=== PATIENT | male | born 1965 | race Caucasian/White ===

== ENCOUNTER 2018-08-13 09:24 | Day surgery (SDC) | payer MEDICARE, MEDICAID ==
[~2018-08-13 09:24] MED LIST: Lactated Ringers 1,000 ML IV SCH; Sodium Chloride 0.9% 10 ML Syringe FLUSH PRN
[2018-08-13] MEDS ORDERED: fentaNYL 100 MCG/2 ML SDV ONE (11:16)
[2018-08-13] MEDS ORDERED: Midazolam 1 MG/ML 2 ML SDV ONE (11:16)
[2018-08-13] MEDS ORDERED: Propofol 200 MG/20 ML SDV ONE (11:17)
--- NOTE | 2018-08-13 11:22 | PCM.HPR ---
H & P Addendum review - H & P Addendum Review Date of Original H & P: 07/27/18 Date Reviewed: 08/13/18 Time Reviewed: 11:22 Patient was Examined: No Changes
--- NOTE | 2018-08-13 11:57 | PCM.OPNOTE ---
- General Post-Op/Procedure Note Date of Surgery/Procedure: 08/13/18 Operative Procedure(s): Colonoscopy with Bx Findings: Large polyp at distal trans colon Pre Op Diagnosis: Screening Post-Op Diagnosis: Same Anesthesia Technique: MAC Primary Surgeon: Edson Stuart Anesthesia Provider: Joyce BURKETT in mLs: 1 Complications: None Condition: Good Free Text/Narrative:: Intake & Output 08/12/18 08/13/18 08/13/18 22:59 06:59 14:59 Intake Total 500 Balance 500
--- NOTE | 2018-08-13 14:18 | OR ---
Date of Procedure: 08/13/2018 PREOPERATIVE DIAGNOSIS: Colon screening. POSTOPERATIVE DIAGNOSES: 1. Distal transverse colon mass. 2. Sigmoid diverticulosis. PROCEDURE: Colonoscopy with biopsy. ANESTHESIA: IV sedation DESCRIPTION OF PROCEDURE: The patient was brought to the procedure room where he was placed on his left side and IV sedation administered. Digital rectal exam was performed which was normal. Colonoscope was inserted and advanced to the level of the cecum without difficulty. Cecal position was confirmed by identifying the appendiceal lumen and ileocecal valve. Prep was good throughout most of the colon other than in the cecum where there was some thick stool remaining on the wall that was mostly irrigated and suctioned. I was able to identify the appendiceal lumen and ileocecal valve. Upon withdrawing the scope, the ascending colon was normal. In the distal transverse colon near what I believe was the splenic flexure was a large polypoid mass, measuring approximately 2.5 cm in diameter. This was partially on a fold, making it somewhat difficult to completely visualize. There was a central superficial ulceration with some white on the surface. I did 3 biopsies from this mass with minimal oozing. If this is benign, this would likely be amenable to endoscopic resection. Photographs were taken. The descending colon was normal. Sigmoid colon had multiple diverticula present. Rectum was normal and retroflexion was normal. Air was removed and the scope withdrawn. The patient tolerated the procedure well and returned to recovery in stable condition. I will have the patient follow up with me in 1 week for review of pathology report and determine further course of action. KRISTIE MEYERS MD /[id number]
== END 2018-08-13 12:59 | disposition home or self-care (01) ==
LOC: LL.SDS 09:24
PROVIDERS: ATTEND Surgery
DX: Z12.11 Encounter for screening for malignant neoplasm of colon (principal); D12.3 Benign neoplasm of transverse colon; K57.30 Diverticulosis of large intestine without perforation or abscess without bleeding; I10 Essential (primary) hypertension; E66.01 Morbid (severe) obesity due to excess calories; E03.9 Hypothyroidism, unspecified; Z87.891 Personal history of nicotine dependence
CPT/HCPCS: 00812; 45380; J2250; J2704; J3010; J7120

== ENCOUNTER 2020-11-30 07:29 | Observation (INO) | payer MEDICAID, MEDICARE ==
[2020-11-30] MEDS ORDERED: Aspirin 81 MG Tab.Chew PO ONE (08:14)
[2020-11-30 08:29] LABS: CHLORIDE,CL 100 mmol/L (98-107); SODIUM,NA 138 mmol/L (136-145)
[2020-11-30] MEDS ORDERED: Ticagrelor 90 MG Tab PO ONE (08:30)
--- NOTE | 2020-11-30 09:23 | EDM.PDOC ---
ED HPI GENERAL MEDICAL PROBLEM - General Chief Complaint: Respiratory Problem Stated Complaint: Shortness of Breath Time Seen by Provider: 11/30/20 08:00 Source of Information: Reports: Patient History Limitations: Reports: No Limitations - History of Present Illness INITIAL COMMENTS - FREE TEXT/NARRATIVE: Patient comes to ER with complaint of feeling like he was "drowning" when he woke this morning. Had small bit of discomfort in central chest around 0700 that resolved. [place] cold/chilled/sweaty. Drove self here and noticed he was more SOB when he walked. Currently no chest pain complaint. No chest tightness. No complaint of feeling SOB while laying in bed in ER. Chest discomfort did not radiate when it was present. Patient had chili last night. Treated for HTN/rhinitis/hypothyroid. No history of VA/CAD. - Related Data Allergies Allergy/AdvReac Type Severity Reaction Status Date / Time No Known Allergies Allergy Verified 11/30/20 08:25 Home Meds: Home Meds Cholecalciferol (Vitamin D3) [Vitamin D] 5,000 unit PO DAILY 08/12/18 [History] Folic Acid 1 mg PO DAILY 08/12/18 [History] Lisinopril/Hydrochlorothiazide [Lisinopril-HCTZ 10-12.5 MG] 1 tab PO DAILY 08/12/18 [History] Potassium Chloride [Klor-Con M20] 20 meq PO DAILY 08/12/18 [History] Acetaminophen 2 tab PO Q4HR PRN 08/13/18 [History] Acetaminophen/Chlorpheniramine [Coricidin HBP Cold & Flu] 2 tab PO BID PRN 08/13/18 [History] Cyanocobalamin (Vitamin B-12) [Vitamin B-12] 1 ml IM ASDIRECTED 08/13/18 [History] Furosemide 20 mg PO DAILY 11/30/20 [History] Levothyroxine 25 mcg PO ACBREAKFAST 11/30/20 [History] Levothyroxine Sodium [Levothyroxine] 200 mcg PO ACBREAKFAST 11/30/20 [History] Loratadine 10 mg PO DAILY PRN 11/30/20 [History] Past Medical History Cardiovascular History: Reports: High Cholesterol, Hypertension Musculoskeletal History: Reports: Osteoarthritis, Other (See Below) Other Musculoskeletal History: Chronic Left Ankle Sprain. Osteoarthritis bilat knees, Left hip, lumbar spine, bilat feet. Chronic bursitis of the Left hip. Lumbar disc degenerative disease. Left sciatica. Plantar fasciitis bilat feet. Left shoulder rotator cuff syndrome. Left elbow pain. Olecranon spur Endocrine/Metabolic History: Reports: Hypothyroidism, Obesity/BMI 30+ Hematologic History: Reports: Anemia, Folic Acid, Other (See Below) Other Hematologic History: Pernicious anemia Dermatologic History: Reports: Other (See Below) Other Dermatologic History: Chronic rash on the feet and on the face Social & Family History - Tobacco Use Tobacco Use Status *Q: Former Tobacco User Used Tobacco, but Quit: Yes Month/Year Tobacco Last Used: 2008 ED ROS GENERAL - Review of Systems Review Of Systems: Comprehensive ROS is negative, except as noted in HPI. ED EXAM, GENERAL - Physical Exam Exam: See Below Exam Limited By: No Limitations General Appearance: Alert, No Apparent Distress, Obese Eye Exam: Bilateral Eye: EOMI, PERRL Ears: Hearing Grossly Normal Nose: No: Nasal Deformity, Nasal Swelling, Nasal Drainage Throat/Mouth: Normal Lips, Normal Voice, No Airway Compromise Head: Atraumatic, Normocephalic Neck: Supple, Non-Tender, Full Range of Motion Respiratory/Chest: No Respiratory Distress, Lungs Clear, Normal Breath Sounds, No Accessory Muscle Use, Chest Non-Tender Cardiovascular: Normal Peripheral Pulses, Regular Rate, Rhythm, No Murmur GI/Abdominal: Normal Bowel Sounds, Soft, Non-Tender, No Distention (Male) Exam: Deferred Rectal (Males) Exam: Deferred Extremities: Non-Tender, Normal Capillary Refill Neurological: Alert, Oriented, Normal Cognition, No Motor/Sensory Deficits Psychiatric: Normal Affect, Normal Mood Skin Exam: Warm, Dry, Intact, Normal Color Course - Vital Signs Last Recorded V/S: Last Vital Signs Temp 36.4 C 11/30/20 07:30 Pulse 88 11/30/20 08:15 Resp 16 11/30/20 08:15 BP 141/70 H 11/30/20 08:15 Pulse Ox 96 11/30/20 08:15 - Orders/Labs/Meds Orders: Active Orders 24 hr Category Date Time Status Peripheral IV Care [RC] . DIRECTED Care 11/30/20 08:01 Active Chest 2V [CR] Stat Exams 11/30/20 08:01 Taken CORONAVIRUS COVID-19 JASON [MOLEC] Stat Lab 11/30/20 08:50 Received Sodium Chloride 0.9% [Saline Flush] Med 11/30/20 08:01 Active 10 ml FLUSH ASDIRECTED PRN Isolation [COMM] Routine Oth 11/30/20 08:46 Active Peripheral IV Insertion Adult [OM.PC] Routine Oth 11/30/20 08:01 Ordered Medication Orders Sodium Chloride (Saline Flush) 10 ml FLUSH ASDIRECTED PRN PRN Reason: Keep Vein Open Labs: Laboratory Tests 11/30/20 11/30/20 11/30/20 Range/Units 07:57 07:57 07:57 WBC 11.8 H (4.0-10.2) K/uL RBC 4.97 (4.33-5.41) M/uL Hgb 13.8 (13.1-16.8) g/dL Hct 43.8 (39.0-49.0) % MCV 88.1 (84.0-98.0) fL MCH 27.8 L (28.2-33.3) pg MCHC 31.5 L (31.7-36.0) g/dL RDW 14.5 H (11.2-14.1) % Plt Count 300 (150-350) K/uL Neut % (Auto) 76.0 (45.0-80.0) % Lymph % (Auto) 13.6 (10.0-50.0) % [place] % (Auto) 8.1 (2.0-14.0) % Eos % (Auto) 1.9 (0.0-5.0) % Baso % (Auto) 0.4 (0.0-2.0) % Neut # (Auto) 8.96 H (1.40-7.00) K/uL Lymph # (Auto) 1.60 (0.50-3.50) K/uL [place] # (Auto) 0.95 (0.00-1.00) K/uL Eos # (Auto) 0.22 (0.00-0.50) K/uL Baso # (Auto) 0.05 (0.00-0.20) K/uL Sodium 138 (136-145) mmol/L Potassium 3.9 (3.5-5.1) mmol/L Chloride 100 (98-107) mmol/L Carbon Dioxide 30.0 (21.0-32.0) mmol/L BUN 19 H (7-18) mg/dL Creatinine 1.15 (0.51-1.17) mg/dL Est Cr Clr Drug Dosing 77.30 mL/min Estimated GFR (MDRD) > 60 mL/min Glucose 122 H (74-106) mg/dL Calcium 9.2 (8.5-10.1) mg/dL Magnesium 1.7 L (1.8-2.4) mg/dL Total Bilirubin 0.5 (0.2-1.0) mg/dL AST 12 L (15-37) U/L ALT 22 (12-78) U/L Alkaline Phosphatase 76 (46-116) IU/L Creatine Kinase 85 (26-308) U/L Creatine Kinase Index 1.2 (0.0-2.5) % CK-MB (CK-2) 1.00 (0.00-3.60) ng/mL Troponin I 0.000 (0.000-0.056) ng/mL NT-Pro-B Natriuret Pep 73 (0-125) pg/mL Total Protein 7.8 (6.4-8.2) g/dL Albumin 3.5 (3.4-5.0) g/dL TSH, Ultra Sensitive 1.694 (0.358-3.740) mIU/mL Meds: Medications Generic Name Dose Route Start Last Admin Trade Name Freq PRN Reason Stop Dose Admin Sodium Chloride 10 ml 11/30/20 08:01 Saline Flush FLUSH ASDIRECTED PRN Keep Vein Open Discontinued Medications Generic Name Dose Route Start Last Admin Trade Name Freq PRN Reason Stop Dose Admin Aspirin 324 mg 11/30/20 08:14 11/30/20 08:17 Aspirin PO 11/30/20 08:15 324 mg ONETIME ONE Administration Ticagrelor 180 mg 11/30/20 08:30 Brilinta PO 11/30/20 08:31 ONETIME ONE - Re-Assessments/Exams Free Text/Narrative Re-Assessment/Exam: 11/30/20 09:26 Cardiac routines initiated. ASA and Brilinta given to patient. Patient's care assumed by . Please refer to his note for further information regarding ER evaluation and further planning. Departure - Departure Time of Disposition: 09:27 Disposition: Still A Patient 30 Condition: Good Clinical Impression: Chest discomfort - Discharge Information Referrals: Corrina Russell NP [Primary Care Provider] - Sepsis Event Note (ED) - Evaluation Sepsis Screening Result: No Definite Risk - Focused Exam Vital Signs: Vital Signs Temp Pulse Resp BP Pulse Ox 11/30/20 08:15 88 16 141/70 H 96 11/30/20 08:00 83 20 147/72 H 96 11/30/20 07:45 85 19 146/76 H 95 11/30/20 07:30 36.4 C 96 20 155/94 H 97 - My Orders Last 24 Hours: My Active Orders 11/30/20 08:01 Peripheral IV Care [RC] . DIRECTED Chest 2V [CR] Stat Sodium Chloride 0.9% [Saline Flush] 10 ml FLUSH ASDIRECTED PRN Peripheral IV Insertion Adult [OM.PC] Routine 11/30/20 08:46 Isolation [COMM] Routine 11/30/20 08:50 CORONAVIRUS COVID-19 JASON [MOLEC] Stat - Assessment/Plan Last 24 Hours: My Active Orders 11/30/20 08:01 Peripheral IV Care [RC] . DIRECTED Chest 2V [CR] Stat Sodium Chloride 0.9% [Saline Flush] 10 ml FLUSH ASDIRECTED PRN Peripheral IV Insertion Adult [OM.PC] Routine 11/30/20 08:46 Isolation [COMM] Routine 11/30/20 08:50 CORONAVIRUS COVID-19 JASON [MOLEC] Stat
--- NOTE | 2020-11-30 09:41 | EDM.PDOC ---
ED HPI GENERAL MEDICAL PROBLEM - General Chief Complaint: Respiratory Problem Stated Complaint: Shortness of Breath Time Seen by Provider: 11/30/20 08:00 Source of Information: Reports: Patient, Old Records ([facility] chart/EMR), Other ([facility] EMR. Verbal report from Dr. Wolff) History Limitations: Reports: No Limitations - History of Present Illness INITIAL COMMENTS - FREE TEXT/NARRATIVE: Patient comes to ER with complaint of feeling like he was "drowning" when he woke this morning. Had small bit of discomfort in central chest around 0700 that resolved. Dolliver cold/chilled/sweaty. Drove self here and noticed he was more SOB when he walked. Currently no chest pain complaint. No chest tightness. No complaint of feeling SOB while laying in bed in ER. Chest discomfort did not radiate when it was present. Patient had chili last night. Treated for HTN/rhinitis/hypothyroid. No history of GA/CAD. The patient drove himself to the emergency room via private automobile for evaluation of sudden onset moderate dyspnea which woke him up at about 5:30 AM this morning. He did have some moderate diaphoresis after he went to the bathroom shortly thereafter and then also again at about 7 AM after he got up with history of progressive dyspnea and decreased exercise tolerance during the last month and especially yesterday. He denies any chest pressure or discomfort despite initial history as above. The patient denies any heart flutter, dizziness, orthostasis, orthopnea, diaphoresis, paresthesias, or any other anginal-type symptoms. No recent history of abdominal pain, heartburn, nausea, diarrhea, melena, gross hematochezia, or any food intolerance, including fatty foods, etc., including normal bowel movement yesterday evening. He denies any gross hematuria, colic, or other UTI symptoms. The patient also denies any recent fever, cough, wheezing, etc.. He denies any other current pain or discomfort. He has been following CDC guidelines for COVID-19 and did receive his influenza booster in September 2020 by his history. Onset: Sudden Onset Date: 11/30/20 Onset Time: 05:30 Duration: Getting Worse, Intermittent Location: Reports: Other (Dyspnea and diaphoresis as above). Denies: Head, Face, Neck, Chest, Abdomen, Back, Upper Extremity, Left, Upper Extremity, Right, Lower Extremity, Left, Radiates to Quality: Reports: Other (No pain) Improves with: Reports: Rest Worsens with: Reports: Movement (Activity/ambulation) Context: Reports: Other (As above). Denies: Sick Contact, Trauma Associated Symptoms: Reports: Diaphoresis, Shortness of Breath. 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: Other (see below) (None although he did take his morning medications) - Related Data Allergies Allergy/AdvReac Type Severity Reaction Status Date / Time No Known Allergies Allergy Verified 11/30/20 08:25 Home Meds: Home Meds Cholecalciferol (Vitamin D3) [Vitamin D] 5,000 unit PO DAILY 08/12/18 [History] Folic Acid 1 mg PO DAILY 08/12/18 [History] Lisinopril/Hydrochlorothiazide [Lisinopril-HCTZ 10-12.5 MG] 1 tab PO DAILY 08/12/18 [History] Potassium Chloride [Klor-Con M20] 20 meq PO DAILY 08/12/18 [History] Acetaminophen 2 tab PO Q4HR PRN 08/13/18 [History] Acetaminophen/Chlorpheniramine [Coricidin HBP Cold & Flu] 2 tab PO BID PRN 08/13/18 [History] Cyanocobalamin (Vitamin B-12) [Vitamin B-12] 1 ml IM ASDIRECTED 08/13/18 [History] Furosemide 20 mg PO DAILY 11/30/20 [History] Levothyroxine 25 mcg PO ACBREAKFAST 11/30/20 [History] Levothyroxine Sodium [Levothyroxine] 200 mcg PO ACBREAKFAST 11/30/20 [History] Loratadine 10 mg PO DAILY PRN 11/30/20 [History] Past Medical History HEENT History: Reports: Allergic Rhinitis, Impaired Vision, Other (See Below). Denies: Cataract, Glaucoma, Hard of Hearing, Macular Degeneration, Otitis Media, Retinal Detachment Other HEENT History: Patient wears glasses. Cardiovascular History: Reports: Arrhythmia, Cardiomyopathy, High Cholesterol, Hypertension, Other (See Below). Denies: Afib, Aneurysm, Blood Clots/VTE/DVT, CAD, Heart Failure, Heart Murmur, GA, PVD, Syncope Other Cardiovascular History: Complete left bundle branch block. PVCs. Mild left ventricular enlargement by echocardiogram in 2014, although suboptimal study. Respiratory History: Reports: None. Denies: Asthma, Bronchitis, Recurrent, COPD, Intubation, Previous, PE, Pneumonia, Recurrent, Pneumothorax, Sleep Apnea, TB Gastrointestinal History: Reports: Colon Polyp, Diverticulosis, Other (See Below). Denies: Celiac Disease, Cholelithiasis, Chronic Constipation, Chronic Diarrhea, Fatty Liver, Fecal Incontinence, Gastritis, GERD, GI Bleed, Hepatitis, Hiatal Hernia, Inflammatory Bowel Disease, Irritable Bowel Syndrome, Jaundice, Pancreatitis, PUD Other Gastrointestinal History: Sigmoid diverticulosis. Tubular adenoma polypectomy from the distal transverse colon/splenic flexure on 05/26/2019. Genitourinary History: Reports: None. Denies: Acute Renal Failure, BPH, Chronic Renal Insuffiency, Renal Calculus, STD, Urinary Incontinence, UTI, Recurrent Musculoskeletal History: Reports: Arthritis, Back Pain, Chronic, Osteoarthritis, Other (See Below). Denies: Amputation, Fracture, Gout, RA Other Musculoskeletal History: Chronic low back pain with left-sided sciatica. Bilateral plantar fasciitis. History of left rotator cuff syndrome/tear. Neurological History: Reports: Neuropathy, Peripheral, Other (See Below). Denies: Alzheimers Disease, Cerebral Aneurysms, Concussion, CVA, Headaches, Chronic, Head Trauma, Migraines, MS, Neuropathy, Diabetic, Parkinson's, Seizure, TIA, Vertigo Other Neuro History: Disability secondary to work injury in 2013 with apparent chronic left minimal hemiparesis and neuropathy? Psychiatric History: Reports: None. Denies: Abuse, Victim of, ADD, ADHD, Addiction, Anxiety, Depression, Psych Hospitalization(s), Psychosis, PTSD, Suicide Attempt, Suicidal Ideation Endocrine/Metabolic History: Reports: Hypokalemia, Hypothyroidism, Obesity/BMI 30+, Other (See Below). Denies: Diabetes, Type I, Diabetes, Type II, Diabetes Mellitus, Type 3c, IDDM Other Endocrine/Metabolic History: Morbid obesity. Hematologic History: Reports: Anemia, B12 Deficiency (Any blood transfusions in the past), Folic Acid, Other (See Below). Denies: Blood Transfusion(s), Iron Deficiency Other Hematologic History: Pernicious anemia Immunologic History: Reports: None (Iron deficiency any possibility of HIV or AIDS exposure). Denies: AIDS, HIV, SLE Oncologic (Cancer) History: Denies: Basal Cell Carcinoma, Colon, Hodgkin's Lymphoma, Leukemia, Lymphoma, Malignant Melanoma ( skin anything like that), Non-Hodgkin's Lymphoma ( any cancers including skin cancer leukemia Hodgkin's disease), Prostate, Squamous Cell Carcinoma Dermatologic History: Reports: Other (See Below). Denies: Eczema, Psoriasis Other Dermatologic History: Chronic rash on the feet and on the face - Infectious Disease History Infectious Disease History: Reports: Chicken Pox. Denies: C-Difficile, Measles, Meningitis, Mononucleosis, MRSA, Mumps, Novel Coronavirus, Pertussis (Whooping Cough), Rheumatic Fever, Rubella, Scarlet Fever, Shingles, TB, VRE - Past Surgical History Head Surgeries/Procedures: Reports: None HEENT Surgical History: Reports: Oral Surgery, Other (See Below). Denies: Ad enoidectomy, Cataract Surgery, Detached Retina, Eye Surgery, Laser Surgery, LASIK, Myringotomy w Tube(s), Naso-Sinus Surgery, Tonsillectomy Other HEENT Surgeries/Procedures: Complete teeth extraction. Cardiovascular Surgical History: Reports: None. Denies: Varicose Respiratory Surgical History: Reports: None. Denies: Thoracentesis GI Surgical History: Reports: Colonoscopy, Small Bowel, Other (See Below). Denies: Appendectomy, Cholecystectomy, EGD, Hernia, Abdominal, Hernia, Inguinal, Hernia Repair/Other, Polypectomy Other GI Surgeries/Procedures: Initial colonoscopy on 08/13/2018 with evidence of a 2.5 cm probable tubular adenoma over the distal transverse colon/splenic flexure with subsequent complete polypectomy via colonoscopy on 05/26/2019. Male Surgical History: Reports: None. Denies: Circumcision, TURP- Transurethral Resection of Prostate, Vasectomy Endocrine Surgical History: Reports: None. Denies: Thyroid Biopsy Neurological Surgical History: Denies: C-Spine, Discectomy, Laminectomy, Lumbar Spine, Sacral Spine, Scoliosis, Spinal Fusion, Thoracic Spine, Vertebroplasty Musculoskeletal Surgical History: Reports: None. Denies: Amputation, Arthrosc opic Procedure, Carpal Tunnel, Ganglion Cyst, Joint Replacement, ORIF, Shoulder Surgery Oncologic Surgical History: Reports: None Dermatological Surgical History: Reports: None - Past Imaging History Past Imaging History: Reports: Cardiac Echo (Suboptimal echocardiogram on 03/22/2014 with ejection fraction of 55-60% and findings as above.) Social & Family History - Family History HEENT: Reports: None. Denies: Glaucoma, Macular Degeneration, Retinal Detachment Cardiac: Reports: Bypass, CAD, Hypertension, GA, Other (See Below). Denies: Aneurysm, Blood Clots/VTE/DVT, Heart Failure, Heart Murmur, High Cholesterol, P VD/COD, Syncope Other Cardiac Family History: Mom with history of GA in her 70s with CABG performed with subsequent demise about 1 week thereafter. Patient denies history of GA in his sister who actually had a CVA. Hypertension mother and sisters x4. Respiratory: Reports: None. Denies: Asthma, COPD, PE, Pneumothorax, Sleep Apnea GI: Reports: None. Denies: Celiac Disease, Cholelithiasis, Colon Polyps, GERD, GI bleed, Inflammatory Bowel Disease, Irritable Bowel Syndrome : Reports: None. Denies: Dialysis, Renal Calculus, Renal Disease/Insufficiency OBGYN: Reports: None. Denies: Endometriosis, Recurrent Spontaneous Musculoskeletal: Reports: None. Denies: Arthritis, Gout, Osteoarthritis, RA, SLE Neurological: Reports: CVA, Other (See Below). Denies: Alzheimers Disease, Cerebral Aneurysms, Dementia, Migraines, MS, Parkinson's, Seizure, TIA Other Neurological Family History: Sister with history of CVA in her 40s. Psychiatric: Reports: None. Denies: Abuse, Victim of, ADD, ADHD, Anxiety, Depression, Psych Hospitalization(s), PTSD, Suicide Attempt Endocrine/Metabolic: Reports: Hypothyroidism, Obesity/MBI 30+, Other (See Be low). Denies: Diabetes, Type I, Diabetes, type II, Diabetes Mellitus, Type 3c, IDDM Other Endocrine/Metabolic Family History: Sister with hypothyroidism. Obesity in sisters x2. Hematologic: Reports: Anemia, Other (See Below). Denies: SLE Other Hematologic Family History: Father with myelodysplastic syndrome as below. Immunologic: Reports: None. Denies: AIDS, HIV, SLE Dermatologic: Reports: None. Denies: Eczema, Psoriasis Oncologic: Reports: Other (See Below). Denies: Colon, Hodgkin's Lymphoma, Leukemia, Lymphoma, Non-Hodgkin's Lymphoma, Prostate, Skin Other Oncologic Family History: Father with fatal myelodysplastic syndrome at age 80. - Tobacco Use Tobacco Use Status *Q: Former Tobacco User Tobacco Use Within Last Twelve Months: No Years of Tobacco use: 20 Packs/Tins Daily: 2 Packs/Tins Daily Comment: Patient smoked 2-3 packs/day between ages 15 and 35. Used Tobacco, but Quit: Yes Smoking Cessation Information Provided To Patient: No Second Hand Smoke Exposure: No Second Hand Smoke Education Provided: No - Caffeine Use Caffeine Use: Reports: Soda (1 soda per day). Denies: Coffee, Energy Drinks, Tea - Alcohol Use Alcohol Use History: No Days Per Week of Alcohol Use: 0 Number of Drinks Per Day: 0 Total Drinks Per Week: 0 Alcohol Use in Last Twelve Months: No - Recreational Drug Use Recreational Drug Use: No Drug Use in Last 12 Months: No Recreational Drug Type: Denies: Amphetamines (Speed), Cocaine, Heroin, Inhalants (Glues, Solvents, Aerosols), LSD (Acid), Marijuana/Hashish, Methamphetamine, Morphine, Oxycodone - Living Situation & Occupation Living situation: Reports: Single (No children), Alone Occupation: Disabled (Disabled in 2002 secondary to work accident as above.) ED ROS GENERAL - Review of Systems Review Of Systems: Comprehensive ROS is negative, except as noted in HPI. ED EXAM, GENERAL - Physical Exam Exam: See Below Free Text/Narrative:: Patient comes to ER with complaint of feeling like he was "drowning" when he woke this morning. Had small bit of discomfort in central chest around 0700 that resolved. Dolliver cold/chilled/sweaty. Drove self here and noticed he was more SOB when he walked. Currently no chest pain complaint. No chest tightness. No complaint of feeling SOB while laying in bed in ER. Chest discomfort did not radiate when it was present. Patient had chili last night. Treated for HTN/rhinitis/hypothyroid. No history of GA/CAD. Exam Limited By: No Limitations General Appearance: Alert, WD/WN, No Apparent Distress, Obese (Morbid) Eye Exam: Bilateral Eye: EOMI, Normal Inspection (Patient is wearing glasses. No vertigo or nystagmus), PERRL Ears: Normal External Exam, Normal Canal, Hearing Grossly Normal, Normal TMs Nose: Normal Inspection, Normal Mucosa, No Blood. No: Nasal Deformity, Nasal Swelling, Nasal Drainage Throat/Mouth: Normal Inspection, Normal Lips, Normal Teeth (Complete dentures uppers and lowers), Normal Gums, Normal Voice, No Airway Compromise. No: Normal Oropharynx, Dysphagia, Inflammation, Perioral Cyanosis Head: Atraumatic, Normocephalic. No: Facial Swelling, Facial Tenderness, Sinus Tenderness Neck: Normal Inspection, Supple, Non-Tender, Full Range of Motion. No: Carotid Bruit, Lymphadenopathy (L), Lymphadenopathy (R), Thyromegaly Respiratory/Chest: No Respiratory Distress, Lungs Clear, Normal Breath Sounds, No Accessory Muscle Use, Chest Non-Tender. No: Pleural Rub, Retractions Cardiovascular: Normal Peripheral Pulses, No Gallop, No JVD, No Murmur, No Rub, Extra Beats (Occasional PVCs by cardiac cath lab manager with otherwise normal rate). No: No Edema (Dependent edema as below), Gallop/S3, Gallop/S4, Friction Rub Peripheral Pulses: 2+: Radial (L), Radial (R), Dorsalis Pedis (L), Dorsalis Pedis (R) GI/Abdominal: Normal Bowel Sounds, Soft, Non-Tender, No Organomegaly, No Distent ion, No Abnormal Bruit, No Mass, Pelvis Stable, Other (Obese). No: Guarding (Male) Exam: Deferred Rectal (Males) Exam: Deferred Back Exam: Normal Inspection, Full Range of Motion. No: CVA Tenderness (L), CVA Tenderness (R), Muscle Spasm Extremities: Normal Inspection, Normal Range of Motion, Non-Tender, Normal Capillary Refill, Pedal Edema (Trace to +1 bilateral pedal/pretibial edema). No: Nelsy's Sign Neurological: Alert, Oriented, CN II-XII Intact, Normal Cognition, Normal Gait (Although patient does require a cane), Normal Reflexes (Negative Babinski's), No Motor/Sensory Deficits (No evidence of significant left hemiparesis despite history as above) Psychiatric: Normal Affect, Normal Mood Skin Exam: Warm, Dry, Intact, Normal Color, Rash (Stable chronic facial and other extremity rashes.). No: Diaphoretic, Wound/Incision Lymphatic: No Adenopathy #1 Interpretation EKG Date: 11/30/20 Time: 07:41 Rhythm: Other (Occasional uniform PVCs) Rate (Beats/Min): 92 Adams: Normal (Neutral) P-Wave: Present QRS: LBBB (0.16 seconds representing a complete right bundle branch block) ST-T: Normal (Resolution of previous T wave inversions in leads II, III, and V5V6) QT: Normal AZ/PQ Interval: 0.13 seconds representing a new somewhat short AZ interval with no delta waves noted. Severe poor R wave progression in the anterior leads. Comparison: Change From Previous EKG (As above since 03/22/2014) EKG Interpretation Comments: 1. No acute ischemic changes 2. Newly diagnosed short AZ interval 3. Complete left bundle branch block 4. Uniform PVCs Course - Vital Signs Last Recorded V/S: Last Vital Signs Temp 36.4 C 11/30/20 07:30 Pulse 83 11/30/20 10:21 Resp 22 H 11/30/20 10:21 BP 135/73 11/30/20 10:21 Pulse Ox 98 11/30/20 10:21 - Orders/Labs/Meds Orders: Active Orders 24 hr Category Date Time Status Peripheral IV Care [RC] . DIRECTED Care 11/30/20 08:01 Active Chest 2V [CR] Stat Exams 11/30/20 08:01 Taken Sodium Chloride 0.9% [Saline Flush] Med 11/30/20 08:01 Active 10 ml FLUSH ASDIRECTED PRN Isolation [COMM] Routine Oth 11/30/20 08:46 Active Peripheral IV Insertion Adult [OM.PC] Routine Oth 11/30/20 08:01 Ordered Medication Orders Sodium Chloride (Saline Flush) 10 ml FLUSH ASDIRECTED PRN PRN Reason: Keep Vein Open Labs: Laboratory Tests 11/30/20 11/30/20 11/30/20 Range/Units 07:57 07:57 07:57 WBC 11.8 H (4.0-10.2) K/uL RBC 4.97 (4.33-5.41) M/uL Hgb 13.8 (13.1-16.8) g/dL Hct 43.8 (39.0-49.0) % MCV 88.1 (84.0-98.0) fL MCH 27.8 L (28.2-33.3) pg MCHC 31.5 L (31.7-36.0) g/dL RDW 14.5 H (11.2-14.1) % Plt Count 300 (150-350) K/uL Neut % (Auto) 76.0 (45.0-80.0) % Lymph % (Auto) 13.6 (10.0-50.0) % Eagle % (Auto) 8.1 (2.0-14.0) % Eos % (Auto) 1.9 (0.0-5.0) % Baso % (Auto) 0.4 (0.0-2.0) % Neut # (Auto) 8.96 H (1.40-7.00) K/uL Lymph # (Auto) 1.60 (0.50-3.50) K/uL Eagle # (Auto) 0.95 (0.00-1.00) K/uL Eos # (Auto) 0.22 (0.00-0.50) K/uL Baso # (Auto) 0.05 (0.00-0.20) K/uL D-Dimer, Quantitative (0-400) ng/mL Sodium 138 (136-145) mmol/L Potassium 3.9 (3.5-5.1) mmol/L Chloride 100 (98-107) mmol/L Carbon Dioxide 30.0 (21.0-32.0) mmol/L BUN 19 H (7-18) mg/dL Creatinine 1.15 (0.51-1.17) mg/dL Est Cr Clr Drug Dosing 77.30 mL/min Estimated GFR (MDRD) > 60 mL/min Glucose 122 H (74-106) mg/dL Lactic Acid (0.4-2.0) mmol/L Calcium 9.2 (8.5-10.1) mg/dL Magnesium 1.7 L (1.8-2.4) mg/dL Total Bilirubin 0.5 (0.2-1.0) mg/dL AST 12 L (15-37) U/L ALT 22 (12-78) U/L Alkaline Phosphatase 76 (46-116) IU/L Creatine Kinase 85 (26-308) U/L Creatine Kinase Index 1.2 (0.0-2.5) % CK-MB (CK-2) 1.00 (0.00-3.60) ng/mL Troponin I 0.000 (0.000-0.056) ng/mL NT-Pro-B Natriuret Pep 73 (0-125) pg/mL Total Protein 7.8 (6.4-8.2) g/dL Albumin 3.5 (3.4-5.0) g/dL TSH, Ultra Sensitive 1.694 (0.358-3.740) mIU/mL SARS-CoV-2 RNA (JASON) (NEGATIVE) 11/30/20 11/30/20 11/30/20 Range/Units 07:57 07:57 08:50 WBC (4.0-10.2) K/uL RBC (4.33-5.41) M/uL Hgb (13.1-16.8) g/dL Hct (39.0-49.0) % MCV (84.0-98.0) fL MCH (28.2-33.3) pg MCHC (31.7-36.0) g/dL RDW (11.2-14.1) % Plt Count (150-350) K/uL Neut % (Auto) (45.0-80.0) % Lymph % (Auto) (10.0-50.0) % Eagle % (Auto) (2.0-14.0) % Eos % (Auto) (0.0-5.0) % Baso % (Auto) (0.0-2.0) % Neut # (Auto) (1.40-7.00) K/uL Lymph # (Auto) (0.50-3.50) K/uL Eagle # (Auto) (0.00-1.00) K/uL Eos # (Auto) (0.00-0.50) K/uL Baso # (Auto) (0.00-0.20) K/uL D-Dimer, Quantitative 224 (0-400) ng/mL Sodium (136-145) mmol/L Potassium (3.5-5.1) mmol/L Chloride (98-107) mmol/L Carbon Dioxide (21.0-32.0) mmol/L BUN (7-18) mg/dL Creatinine (0.51-1.17) mg/dL Est Cr Clr Drug Dosing mL/min Estimated GFR (MDRD) mL/min Glucose (74-106) mg/dL Lactic Acid 1.1 (0.4-2.0) mmol/L Calcium (8.5-10.1) mg/dL Magnesium (1.8-2.4) mg/dL Total Bilirubin (0.2-1.0) mg/dL AST (15-37) U/L ALT (12-78) U/L Alkaline Phosphatase (46-116) IU/L Creatine Kinase (26-308) U/L Creatine Kinase Index (0.0-2.5) % CK-MB (CK-2) (0.00-3.60) ng/mL Troponin I (0.000-0.056) ng/mL NT-Pro-B Natriuret Pep (0-125) pg/mL Total Protein (6.4-8.2) g/dL Albumin (3.4-5.0) g/dL TSH, Ultra Sensitive (0.358-3.740) mIU/mL SARS-CoV-2 RNA (JASON) Negative (NEGATIVE) Microbiology 11/30/20 08:50 Nasal Aspirate, Left Influenza Type A Antigen Screen - Final NEGATIVE INFLUENZA A VIRUS AG REFERENCE RANGE: NEGATIVE 11/30/20 08:50 Nasal Aspirate, Left Influenza Type B Antigen Screen - Final NEGATIVE INFLUENZA B VIRUS AG REFERENCE RANGE: NEGATIVE Meds: Medications Generic Name Dose Route Start Last Admin Trade Name Freq PRN Reason Stop Dose Admin Sodium Chloride 10 ml 11/30/20 08:01 Saline Flush FLUSH ASDIRECTED PRN Keep Vein Open Discontinued Medications Generic Name Dose Route Start Last Admin Trade Name Freq PRN Reason Stop Dose Admin Aspirin 324 mg 11/30/20 08:14 11/30/20 08:17 Aspirin PO 11/30/20 08:15 324 mg ONETIME ONE Administration Ticagrelor 180 mg 11/30/20 08:30 11/30/20 09:42 Brilinta PO 11/30/20 08:31 180 mg ONETIME ONE Administration - Radiology Interpretation Free Text/Narrative:: 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 Chest x-ray, PA and lateral, shows no evidence of cardiomegaly, CHF, pulmonary infiltrates, pneumothorax, etc. Departure - Departure Time of Disposition: 09:00 Disposition: Refer to Observation Condition: Good Clinical Impression: Left bundle branch block, PVCs (premature ventricular contractions), Shortened AZ interval, Obesity (BMI 30-39.9), Hypomagnesemia, Hypothyroidism (acquired) Dyspnea Qualifiers: Dyspnea type: dyspnea on exertion Qualified Code(s): R06.00 - Dyspnea, unspecified Osteoarthritis Qualifiers: Osteoarthritis location: multiple joints Osteoarthritis type: primary Qualified Code(s): M89.49 - Other hypertrophic osteoarthropathy, multiple sites Hyperlipidemia Qualifiers: Hyperlipidemia type: unspecified Qualified Code(s): E78.5 - Hyperlipidemia, unspecified Leukocytosis Qualifiers: Leukocytosis type: bandemia Qualified Code(s): D72.825 - Bandemia Referrals: Corrina Russell NP [Primary Care Provider] - Forms: ED Department Discharge Care Plan Goals: See plan Sepsis Event Note (ED) - Evaluation Sepsis Screening Result: No Definite Risk - Focused Exam Vital Signs: Vital Signs Temp Pulse Resp BP Pulse Ox 11/30/20 10:21 83 22 H 135/73 98 11/30/20 09:45 80 16 111/80 96 11/30/20 09:15 79 20 139/51 L 96 11/30/20 09:00 79 20 140/49 L 95 11/30/20 08:45 79 20 140/65 95 11/30/20 08:30 81 20 135/65 96 11/30/20 08:15 88 16 141/70 H 96 11/30/20 08:00 83 20 147/72 H 96 11/30/20 07:45 85 19 146/76 H 95 11/30/20 07:30 36.4 C 96 20 155/94 H 97 - Problem List & Annotations (1) Dyspnea SNOMED Code(s): 017924842 Code(s): R06.00 - DYSPNEA, UNSPECIFIED Status: Acute Priority: High Current Visit: Yes Onset Date: 11/29/20 Annotation/Comment:: Suspect possible beginning unstable angina. BNP is normal with no evidence of CHF either by clinical exam or chest x-ray. Consider repeating echocardiogram on an outpatient basis. Chest pain protocol was initiated upon patient's arrival to the emergency room. Cardiology consultation depending on his clinical course. Initiate standard rule out GA orders. Consider dobutamine Cardiolite stress test on an outpatient basis secondary to his current disability. Qualifiers: Dyspnea type: dyspnea on exertion Qualified Code(s): R06.00 - Dyspnea, unspecified (2) Hyperlipidemia SNOMED Code(s): 85061972 Code(s): E78.5 - HYPERLIPIDEMIA, UNSPECIFIED Status: Chronic Priority: Medium Current Visit: Yes Annotation/Comment:: Currently under therapy. Lipid panel and glycosylated hemoglobin in the a.m. Lipid panel in this facility on 12/30/2019 was okay. Qualifiers: Hyperlipidemia type: unspecified Qualified Code(s): E78.5 - Hyperlipidemia, unspecified (3) Hypomagnesemia SNOMED Code(s): 718519142 Code(s): E83.42 - HYPOMAGNESEMIA Status: Acute Priority: Medium Current Visit: Yes Onset Date: 11/30/20 Annotation/Comment:: Initiate magnesium oxide therapy with consideration of IV magnesium sulfate depending on his clinical course. (4) Hypothyroidism (acquired) SNOMED Code(s): 399946338 Code(s): E03.9 - HYPOTHYROIDISM, UNSPECIFIED Status: Chronic Priority: Medium Current Visit: Yes Annotation/Comment:: TSH normal today. (5) Left bundle branch block SNOMED Code(s): 65231905 Code(s): I44.7 - LEFT BUNDLE-BRANCH BLOCK, UNSPECIFIED Status: Chronic Priority: Medium Current Visit: Yes Annotation/Comment:: Stable with actually improved ischemic changes from last EKG on 03/22/2014 as above. (6) Leukocytosis SNOMED Code(s): 139794276, 402063754 Code(s): D72.829 - ELEVATED WHITE BLOOD CELL COUNT, UNSPECIFIED Status: Acute Priority: Medium Current Visit: Yes Onset Date: 11/30/20 Annotation/Comment:: No fever or evidence of infection. Lactic acid level is normal. Possible stress reaction. Qualifiers: Leukocytosis type: bandemia Qualified Code(s): D72.825 - Bandemia (7) Obesity (BMI 30-39.9) SNOMED Code(s): 497641025, 886938211 Code(s): E66.9 - OBESITY, UNSPECIFIED Status: Chronic Priority: High Current Visit: Yes Annotation/Comment:: Weight loss in moderation advisable. (8) Osteoarthritis SNOMED Code(s): 184980238 Code(s): M19.90 - UNSPECIFIED OSTEOARTHRITIS, UNSPECIFIED SITE Status: Chronic Priority: Medium Current Visit: Yes Annotation/Comment:: Stable with no history of fall, injury, etc. Note disability as above. Qualifiers: Osteoarthritis location: multiple joints Osteoarthritis type: primary Qualified Code(s): M89.49 - Other hypertrophic osteoarthropathy, multiple sites (9) PVCs (premature ventricular contractions) SNOMED Code(s): 22841096 Code(s): I49.3 - VENTRICULAR PREMATURE DEPOLARIZATION Status: Acute Current Visit: Yes (10) Shortened [place] interval SNOMED Code(s): 99816352 Code(s): R94.31 - ABNORMAL ELECTROCARDIOGRAM [ECG] [EKG] Status: Acute Current Visit: Yes - Problem List Review Problem List Initiated/Reviewed/Updated: Yes - Assessment/Plan Admission H&P: Please use this note as an admission H&P Assessment:: As above Plan: As above. Extensive precautions were given to the patient, who is in agreement with the treatment plan. The patient's condition is stable enough for observation status and general supervision.
[2020-11-30] MEDS ORDERED: Loratadine 10 MG Tab PO PRN (11:29)
[2020-11-30] MEDS ORDERED: Sodium Chloride 0.9% 10 ML Syringe FLUSH PRN (11:30)
[2020-11-30] MEDS ORDERED: Temazepam 15 MG Cap PO PRN (11:30)
[2020-11-30] MEDS ORDERED: Magnesium Oxide 400 MG Tab PO SCH (11:33)
[2020-11-30] MEDS ORDERED: Acetaminophen 325 MG Tab PO PRN (12:00)
[2020-11-30] MEDS: Magnesium Oxide 400 MG Tab PO SCH ×2 (18:02→19:51)
[2020-11-30] MEDS ORDERED: GI Cocktail Oral Solution 30 ML PO ONE (18:44)
[2020-11-30] MEDS: Pantoprazole 40 MG Vial IVPUSH SCH (19:53)
[2020-11-30] MEDS: Sodium Chloride 0.9% 10 ML Syringe FLUSH PRN (19:53)
[2020-12-01] MEDS ORDERED: Levothyroxine 100 MCG Tab PO SCH (07:30)
[2020-12-01] MEDS ORDERED: Levothyroxine 25 MCG Tab PO SCH (07:30)
[2020-12-01 07:55] LABS: HEMOGLOBIN A1C 5.6 % (4.3-5.7)
[2020-12-01] MEDS ORDERED: Potassium Chloride 20 MEQ Tab.ER PO SCH (08:00)
[2020-12-01] MEDS ORDERED: Folic Acid 1 MG Tab PO SCH (08:00)
[2020-12-01] MEDS ORDERED: Hydrochlorothiazide 25 MG Tab PO SCH (08:00)
[2020-12-01] MEDS ORDERED: Lisinopril 10 MG Tab PO SCH (08:00)
[2020-12-01] MEDS ORDERED: Furosemide 20 MG Tab PO SCH (08:00)
[2020-12-01 08:41] LABS: CHLORIDE,CL 100 mmol/L (98-107); SODIUM,NA 138 mmol/L (136-145)
[2020-12-01] MEDS: Pantoprazole 40 MG Vial IVPUSH SCH (08:44)
[2020-12-01] MEDS: Sodium Chloride 0.9% 10 ML Syringe FLUSH PRN (08:54)
--- NOTE | 2020-12-01 12:29 | PCM.DCSUM1 ---
Discharge Summary - Hospital Course HPI Initial Comments: See emergency room note/initial H&P Brief History: See emergency room note/admission H&P Diagnosis: Stroke: No Modified Ermias Scale: No Symptoms at All Modified [place] Scale Score: 0 - Discharge Data Discharge Date: 12/01/20 Discharge Disposition: DC/Tfer to Acute Hospital 02 Condition: Good - Referral to Home Health Primary Care Physician: Corrina Russell GAS MANAGER - Discharge Diagnosis/Problem(s) (1) Dyspnea SNOMED Code(s): 103106448 ICD Code: R06.00 - DYSPNEA, UNSPECIFIED Status: Acute Priority: High Current Visit: Yes Onset Date: 11/29/20 Problem Details: Telephone consultation at 12 PM with [facility] in [place] initially and then at 12:[address] Lopez, virtual reality specialist, who does recommend patient transfer to their facility for further cardiac work-up, including possible echocardiogram and/or heart catheterization. Secondary to his obesity he is likely not a candidate for the Cardiolite scanner. Subsequent telephone consultation at 12:[address] Cochran, hospitalist at [facility], who does accept the patient for direct admission with no further treatment recommendations given. Ambulance transfer via ambulance with readers' advisory service librarian accompaniment. Vital signs and clinical exam were stable at time of transfer with patient being completely chest pain-free at this time. Note that at about 6 PM yesterday afternoon the patient had a recurrent episode of moderate diaphoresis and nonspecific left- sided chest pressure with no significant additional EKG changes at that time. Patient was treated with IV Protonix and a green lizard with overall good results and no recurrence of his chest pain during the remainder of this hospitalization. Secondary to patient's history I did initially suspect possible beginning unstable angina with evidence of possible inferior wall cardiac ischemia by today's EKG, although note complete chronic left bundle branch block. Serial cardiac enzymes x4 were negative for acute CO. BNP was normal on admission with no evidence of CHF either by clinical exam or chest x- ray. Chest pain protocol was initiated upon patient's arrival to the emergency room. Qualifiers: Dyspnea type: dyspnea on exertion Qualified Code(s): R06.00 - Dyspnea, unspecified (2) Hyperlipidemia SNOMED Code(s): 21782512 ICD Code: E78.5 - HYPERLIPIDEMIA, UNSPECIFIED Status: Chronic Priority: Medium Current Visit: Yes Problem Details: Currently under therapy. Excellent lipid panel and glycosylated hemoglobin on 12/01/2020 despite his morbid obesity. Weight loss in moderation strongly advisable. Qualifiers: Hyperlipidemia type: unspecified Qualified Code(s): E78.5 - Hyperlipidemia, unspecified (3) Hypomagnesemia SNOMED Code(s): 172270884 ICD Code: E83.42 - HYPOMAGNESEMIA Status: Acute Priority: Medium Current Visit: Yes Onset Date: 11/30/20 Problem Details: Initiated magnesium oxide therapy on admission with this supplement to be taken in the afternoon secondary to patient's current thyroid supplementation. Magnesium level normal on 12/01/2020 with close follow-up by accepting and regular providers. (4) Hypothyroidism (acquired) SNOMED Code(s): 050321540 ICD Code: E03.9 - HYPOTHYROIDISM, UNSPECIFIED Status: Chronic Priority: Medium Current Visit: Yes Problem Details: TSH normal on 11/30/2020. (5) Left bundle branch block SNOMED Code(s): 98089345 ICD Code: I44.7 - LEFT BUNDLE-BRANCH BLOCK, UNSPECIFIED Status: Chronic Priority: Medium Current Visit: Yes Problem Details: Stable with actually improved ischemic changes from last EKG on 03/22/2014 as per emergency room note. Note evidence of possible inferior wall cardiac ischemia as above, however. (6) Leukocytosis SNOMED Code(s): 702012276, 708964888 ICD Code: D72.829 - ELEVATED WHITE BLOOD CELL COUNT, UNSPECIFIED Status: Acute Priority: Medium Current Visit: Yes Onset Date: 11/30/20 Problem Details: No fever or evidence of infection. Lactic acid level is normal. Possible stress reaction with normal WBCs on 12/01. Qualifiers: Leukocytosis type: bandemia Qualified Code(s): D72.825 - Bandemia (7) Obesity (BMI 30-39.9) SNOMED Code(s): 986206690, 597960836 ICD Code: E66.9 - OBESITY, UNSPECIFIED Status: Chronic Priority: High Current Visit: Yes Problem Details: Morbid obesity. Weight loss in moderation advisable. (8) Osteoarthritis SNOMED Code(s): 078961069 ICD Code: M19.90 - UNSPECIFIED OSTEOARTHRITIS, UNSPECIFIED SITE Status: Chronic Priority: Medium Current Visit: Yes Problem Details: Stable with no history of fall, injury, etc. Note disability as above. Qualifiers: Osteoarthritis location: multiple joints Osteoarthritis type: primary Qualified Code(s): M89.49 - Other hypertrophic osteoarthropathy, multiple sites (9) PVCs (premature ventricular contractions) SNOMED Code(s): 29635402 ICD Code: I49.3 - VENTRICULAR PREMATURE DEPOLARIZATION Status: Acute Current Visit: Yes Problem Details: Somewhat increased frequency of PVCs shortly after admission, however significantly improved during this hospitalization. Continue to observe closely by accepting providers with consideration of event monitor, etc. depending on his clinical course. (10) Shortened [place] interval SNOMED Code(s): 82498550 ICD Code: R94.31 - ABNORMAL ELECTROCARDIOGRAM [ECG] [EKG] Status: Acute Priority: Medium Current Visit: Yes Onset Date: 12/01/20 Problem Details: No evidence of delta waves or WPW syndrome. Further cardiac work-up as needed as above. - Patient Summary/Data Operative Procedure(s) Performed: None Complications: None Consults: Cemetery Vault Installer and hospitalist as above Labs Pending at D/C: None Recommended Follow-up Testing/Procedures: As above Planned Operative Procedure(s) after DC: Possible heart catheterization as above Hospital Course: Patient was placed in observation status on telemetry with negative work-up for acute CO as above. Secondary to his multiple cardiac risk factors, evidence of possible inferior wall cardiac ischemia, etc. the patient was transferred to [facility] for further cardiac work-up as above. - Patient Instructions Diet: NPO (Although the patient did have a heart healthy, 1500-calorie for lunch today) Activity: Bedrest Driving: Do Not Drive Showering/Bathing: May Shower Notify Provider of: Increased Pain, Nausea and/or Vomiting - Discharge Plan *PRESCRIPTION DRUG MONITORING PROGRAM REVIEWED*: Not Applicable *COPY OF PRESCRIPTION DRUG MONITORING REPORT IN PATIENT MICHAEL: Not Applicable Home Medications: Home Meds Cholecalciferol (Vitamin D3) [Vitamin D] 5,000 unit PO DAILY 08/12/18 [History] Folic Acid 1 mg PO DAILY 08/12/18 [History] Lisinopril/Hydrochlorothiazide [Lisinopril-HCTZ 10-12.5 MG] 1 tab PO DAILY 08/12/18 [History] Potassium Chloride [Klor-Con M20] 20 meq PO DAILY 08/12/18 [History] Acetaminophen 2 tab PO Q4HR PRN 08/13/18 [History] Acetaminophen/Chlorpheniramine [Coricidin HBP Cold & Flu] 2 tab PO BID PRN 08/13/18 [History] Cyanocobalamin (Vitamin B-12) [Vitamin B-12] 1 ml IM ASDIRECTED 08/13/18 [History] Furosemide 20 mg PO DAILY 11/30/20 [History] Levothyroxine 25 mcg PO ACBREAKFAST 11/30/20 [History] Levothyroxine Sodium [Levothyroxine] 200 mcg PO ACBREAKFAST 11/30/20 [History] Loratadine 10 mg PO DAILY PRN 11/30/20 [History] Oxygen Therapy Mode: Room Air Forms: ED Department Discharge, Interfacility Transfer EMTALA Referrals: Corrina Russell, GAS MANAGER [Primary Care Provider] - - Discharge Summary/Plan Comment DC Time >30 min.: Yes (Coordination of care ) Discharge Summary/Plan Comment: As above. Extensive precautions were given to the patient, who is in agreement with the treatment plan. Ambulance transfer to [facility] as above. - General Info Date of Service: 12/01/20 Admission Dx/Problem (Free Text: Dyspnea Functional Status: Reports: Pain Controlled, Tolerating Diet, Ambulating (With cane), Urinating, Incentive Spirometry. Denies: New Symptoms Numeric/FACES Score: 0 - Review of Systems General: Reports: No Symptoms. Denies: Fever, Weakness, Fatigue, Malaise, Chills, Night Sweats, Appetite (Good) HEENT: Reports: Glasses. Denies: Contact Lenses, Dysphasia, Ear Pain, Eye Pain, Headaches, Post Nasal Drip, Sinus Congestion, Sore Throat, Rhinitis, Visual Changes Pulmonary: Reports: Shortness of Breath (With minimal activity). Denies: Pleuritic Chest Pain, Cough, Sputum, Hemoptysis, Wheezing Cardiovascular: Reports: Dyspnea on Exertion, Edema (Stable dependent edema). Denies: Chest Pain, Palpitations, Orthopnea, PND, Lightheadedness Gastrointestinal: Reports: No Symptoms, Other (Normal bowel movement this morning). Denies: Abdominal Pain, Constipation, Decreased Appetite, Diarrhea, Difficulty Swallowing, Hematochezia, Melena, Nausea, Vomiting Genitourinary: Reports: No Symptoms. Denies: Dysuria, Frequency, Burning, Pain, Urgency, Incontinence, Hematuria, Retention, Flank Pain Musculoskeletal: Reports: No Symptoms. Denies: Neck Pain, Shoulder Pain, Arm Pain, Back Pain, Leg Pain Skin: Reports: No Symptoms. Denies: Diaphoresis, Bruising, Rash Neurological: Reports: Gait Disturbance (Stable borderline left hemiparesis requiring cane use). Denies: Confusion, Dizziness, Headache, Numbness, Paresthesia, Syncope, Tingling, Weakness Psychiatric: Reports: No Symptoms. Denies: Confusion, Depression, Anxiety, Agitation, Cravings, Hallucinations - Patient Data Vitals - Most Recent: Last Vital Signs Temp 36.7 C 12/01/20 08:00 Pulse 76 12/01/20 08:00 Resp 16 12/01/20 08:00 BP 130/66 12/01/20 08:46 Pulse Ox 94 L 12/01/20 08:00 Vital Signs - 24 hr 11/30/20 11/30/20 11/30/20 13:30 15:00 19:51 Temperature [ 36.4 C Oral] Temperature [ 36.7 C 37.1 C Temporal] Pulse, 78 76 77 Peripheral [ Pulse Oximetry] Respiratory 18 22 H 20 Rate Blood Pressure Blood Pressure 125/57 L 151/86 H 131/75 [Right Lower Arm] O2 Sat by Pulse 93 L 95 95 Oximetry 12/01/20 12/01/20 12/01/20 00:00 04:00 08:00 Temperature [ Oral] Temperature [ 36.6 C 36.6 C 36.7 C Temporal] Pulse, 78 76 76 Peripheral [ Pulse Oximetry] Respiratory 20 20 16 Rate Blood Pressure Blood Pressure 115/63 138/64 130/66 [Right Lower Arm] O2 Sat by Pulse 96 95 94 L Oximetry 12/01/20 08:46 Temperature [ Oral] Temperature [ Temporal] Pulse, Peripheral [ Pulse Oximetry] Respiratory Rate Blood Pressure 130/66 Blood Pressure [Right Lower Arm] O2 Sat by Pulse Oximetry Weight - Most Recent: 211.873 kg I&O - Last 24 hours: Intake & Output 11/30/20 12/01/20 12/01/20 22:59 06:59 14:59 Intake Total 310 150 360 Output Total 300 450 Balance 10 -300 360 Imaging Impressions - Last 24 hrs: monitoring specialist shows normal sinus rhythm with average heart rate in the 70s to 80s with improvement/resolution of previous multiple mostly uniform PVCs. Chest x-ray, PA and lateral, on 11/30/2020 shows no evidence of cardiomegaly, CHF, pulmonary infiltrates, pneumothorax, etc. Lab Results - Last 24 hrs: Laboratory Results - last 24 hr 11/30/20 11/30/20 11/30/20 Range/Units 13:47 18:23 19:35 WBC (4.0-10.2) K/uL RBC (4.33-5.41) M/uL Hgb (13.1-16.8) g/dL Hct (39.0-49.0) % MCV (84.0-98.0) fL MCH (28.2-33.3) pg MCHC (31.7-36.0) g/dL RDW (11.2-14.1) % Plt Count (150-350) K/uL Neut % (Auto) (45.0-80.0) % Lymph % (Auto) (10.0-50.0) % [place] % (Auto) (2.0-14.0) % Eos % (Auto) (0.0-5.0) % Baso % (Auto) (0.0-2.0) % Neut # (Auto) (1.40-7.00) K/uL Lymph # (Auto) (0.50-3.50) K/uL [place] # (Auto) (0.00-1.00) K/uL Eos # (Auto) (0.00-0.50) K/uL Baso # (Auto) (0.00-0.20) K/uL Sodium (136-145) mmol/L Potassium (3.5-5.1) mmol/L Chloride (98-107) mmol/L Carbon Dioxide (21.0-32.0) mmol/L BUN (7-18) mg/dL Creatinine (0.51-1.17) mg/dL Est Cr Clr Drug Dosing mL/min Estimated GFR (MDRD) mL/min Glucose (74-106) mg/dL Hemoglobin A1c (4.3-5.7) % Uric Acid (2.6-7.2) mg/dL Calcium (8.5-10.1) mg/dL Magnesium (1.8-2.4) mg/dL Total Bilirubin (0.2-1.0) mg/dL AST (15-37) U/L ALT (12-78) U/L Alkaline Phosphatase (46-116) IU/L Creatine Kinase 115 151 (26-308) U/L Creatine Kinase Index 0.9 0.7 (0.0-2.5) % CK-MB (CK-2) 1.00 1.10 (0.00-3.60) ng/mL Troponin I 0.007 0.004 (0.000-0.056) ng/mL Total Protein (6.4-8.2) g/dL Albumin (3.4-5.0) g/dL Triglycerides (30-150) mg/dL Cholesterol (100-200) mg/dL LDL Cholesterol, Calc (0-100) mg/dL HDL Cholesterol (40-60) mg/dL Specimen Type Urincc Urine Color Yellow Urine Appearance Clear Urine pH 5.0 (5.0-9.0) Ur Specific Lynn 1.025 (1.005-1.030) Urine Protein Negative (NEGATIVE) mg/dL Urine Glucose (UA) Negative (NEGATIVE) mg/dL Urine Ketones Negative (NEGATIVE) mg/dL Urine Occult Blood Negative (NEGATIVE) Urine Nitrite Negative (NEGATIVE) Urine Bilirubin Negative (NEGATIVE) Urine Urobilinogen 0.2 (0.2-1.0) E.U./dL Ur Leukocyte Esterase Negative (NEGATIVE) Urine RBC 0-5 /HPF Urine WBC Not seen /HPF Ur Epithelial Cells Rare /LPF Urine Bacteria Rare (NONE TO FEW) /HPF Urine Mucus Rare H (NEGATIVE) /LPF 12/01/20 12/01/20 12/01/20 Range/Units 07:24 07:24 07:24 WBC 9.2 (4.0-10.2) K/uL RBC 5.07 (4.33-5.41) M/uL Hgb 14.1 (13.1-16.8) g/dL Hct 44.5 (39.0-49.0) % MCV 87.8 (84.0-98.0) fL MCH 27.8 L (28.2-33.3) pg MCHC 31.7 (31.7-36.0) g/dL RDW 14.5 H (11.2-14.1) % Plt Count 291 (150-350) K/uL Neut % (Auto) 75.0 (45.0-80.0) % Lymph % (Auto) 14.4 (10.0-50.0) % [place] % (Auto) 8.2 (2.0-14.0) % Eos % (Auto) 2.0 (0.0-5.0) % Baso % (Auto) 0.4 (0.0-2.0) % Neut # (Auto) 6.87 (1.40-7.00) K/uL Lymph # (Auto) 1.32 (0.50-3.50) K/uL [place] # (Auto) 0.75 (0.00-1.00) K/uL Eos # (Auto) 0.18 (0.00-0.50) K/uL Baso # (Auto) 0.04 (0.00-0.20) K/uL Sodium 138 (136-145) mmol/L Potassium 4.2 (3.5-5.1) mmol/L Chloride 100 (98-107) mmol/L Carbon Dioxide 30.9 (21.0-32.0) mmol/L BUN 17 (7-18) mg/dL Creatinine 0.89 (0.51-1.17) mg/dL Est Cr Clr Drug Dosing 99.88 mL/min Estimated GFR (MDRD) > 60 mL/min Glucose 101 (74-106) mg/dL Hemoglobin A1c 5.6 (4.3-5.7) % Uric Acid 6.5 (2.6-7.2) mg/dL Calcium 9.2 (8.5-10.1) mg/dL Magnesium 2.1 (1.8-2.4) mg/dL Total Bilirubin 0.8 (0.2-1.0) mg/dL AST 14 L (15-37) U/L ALT 21 (12-78) U/L Alkaline Phosphatase 77 (46-116) IU/L Creatine Kinase 159 (26-308) U/L Creatine Kinase Index 0.6 (0.0-2.5) % CK-MB (CK-2) 1.00 (0.00-3.60) ng/mL Troponin I 0.005 (0.000-0.056) ng/mL Total Protein 7.9 (6.4-8.2) g/dL Albumin 3.6 (3.4-5.0) g/dL Triglycerides 57 (30-150) mg/dL Cholesterol 156 (100-200) mg/dL LDL Cholesterol, Calc 100 (0-100) mg/dL HDL Cholesterol 45 (40-60) mg/dL Specimen Type Urine Color Urine Appearance Urine pH (5.0-9.0) Ur Specific Lynn (1.005-1.030) Urine Protein (NEGATIVE) mg/dL Urine Glucose (UA) (NEGATIVE) mg/dL Urine Ketones (NEGATIVE) mg/dL Urine Occult Blood (NEGATIVE) Urine Nitrite (NEGATIVE) Urine Bilirubin (NEGATIVE) Urine Urobilinogen (0.2-1.0) E.U./dL Ur Leukocyte Esterase (NEGATIVE) Urine RBC /HPF Urine WBC /HPF Ur Epithelial Cells /LPF Urine Bacteria (NONE TO FEW) /HPF Urine Mucus (NEGATIVE) /LPF Laboratory Tests 11/30/20 11/30/20 11/30/20 Range/Units 07:57 07:57 07:57 WBC 11.8 H (4.0-10.2) K/uL RBC 4.97 (4.33-5.41) M/uL Hgb 13.8 (13.1-16.8) g/dL Hct 43.8 (39.0-49.0) % MCV 88.1 (84.0-98.0) fL MCH 27.8 L (28.2-33.3) pg MCHC 31.5 L (31.7-36.0) g/dL RDW 14.5 H (11.2-14.1) % Plt Count 300 (150-350) K/uL Neut % (Auto) 76.0 (45.0-80.0) % Lymph % (Auto) 13.6 (10.0-50.0) % [place] % (Auto) 8.1 (2.0-14.0) % Eos % (Auto) 1.9 (0.0-5.0) % Baso % (Auto) 0.4 (0.0-2.0) % Neut # (Auto) 8.96 H (1.40-7.00) K/uL Lymph # (Auto) 1.60 (0.50-3.50) K/uL [place] # (Auto) 0.95 (0.00-1.00) K/uL Eos # (Auto) 0.22 (0.00-0.50) K/uL Baso # (Auto) 0.05 (0.00-0.20) K/uL D-Dimer, Quantitative (0-400) ng/mL Sodium 138 (136-145) mmol/L Potassium 3.9 (3.5-5.1) mmol/L Chloride 100 (98-107) mmol/L Carbon Dioxide 30.0 (21.0-32.0) mmol/L BUN 19 H (7-18) mg/dL Creatinine 1.15 (0.51-1.17) mg/dL Est Cr Clr Drug Dosing 77.30 mL/min Estimated GFR (MDRD) > 60 mL/min Glucose 122 H (74-106) mg/dL Hemoglobin A1c (4.3-5.7) % Lactic Acid (0.4-2.0) mmol/L Uric Acid (2.6-7.2) mg/dL Calcium 9.2 (8.5-10.1) mg/dL Magnesium 1.7 L (1.8-2.4) mg/dL Total Bilirubin 0.5 (0.2-1.0) mg/dL AST 12 L (15-37) U/L ALT 22 (12-78) U/L Alkaline Phosphatase 76 (46-116) IU/L Creatine Kinase 85 (26-308) U/L Creatine Kinase Index 1.2 (0.0-2.5) % CK-MB (CK-2) 1.00 (0.00-3.60) ng/mL Troponin I 0.000 (0.000-0.056) ng/mL NT-Pro-B Natriuret Pep 73 (0-125) pg/mL Total Protein 7.8 (6.4-8.2) g/dL Albumin 3.5 (3.4-5.0) g/dL Triglycerides (30-150) mg/dL Cholesterol (100-200) mg/dL LDL Cholesterol, Calc (0-100) mg/dL HDL Cholesterol (40-60) mg/dL TSH, Ultra Sensitive 1.694 (0.358-3.740) mIU/mL Specimen Type Urine Color Urine Appearance Urine pH (5.0-9.0) Ur Specific [place] (1.005-1.030) Urine Protein (NEGATIVE) mg/dL Urine Glucose (UA) (NEGATIVE) mg/dL Urine Ketones (NEGATIVE) mg/dL Urine Occult Blood (NEGATIVE) Urine Nitrite (NEGATIVE) Urine Bilirubin (NEGATIVE) Urine Urobilinogen (0.2-1.0) E.U./dL Ur Leukocyte Esterase (NEGATIVE) Urine RBC /HPF Urine WBC /HPF Ur Epithelial Cells /LPF Urine Bacteria (NONE TO FEW) /HPF Urine Mucus (NEGATIVE) /LPF SARS-CoV-2 RNA (JASON) (NEGATIVE) 11/30/20 11/30/20 11/30/20 Range/Units 07:57 07:57 08:50 WBC (4.0-10.2) K/uL RBC (4.33-5.41) M/uL Hgb (13.1-16.8) g/dL Hct (39.0-49.0) % MCV (84.0-98.0) fL MCH (28.2-33.3) pg MCHC (31.7-36.0) g/dL RDW (11.2-14.1) % Plt Count (150-350) K/uL Neut % (Auto) (45.0-80.0) % Lymph % (Auto) (10.0-50.0) % [place] % (Auto) (2.0-14.0) % Eos % (Auto) (0.0-5.0) % Baso % (Auto) (0.0-2.0) % Neut # (Auto) (1.40-7.00) K/uL Lymph # (Auto) (0.50-3.50) K/uL [place] # (Auto) (0.00-1.00) K/uL Eos # (Auto) (0.00-0.50) K/uL Baso # (Auto) (0.00-0.20) K/uL D-Dimer, Quantitative 224 (0-400) ng/mL Sodium (136-145) mmol/L Potassium (3.5-5.1) mmol/L Chloride (98-107) mmol/L Carbon Dioxide (21.0-32.0) mmol/L BUN (7-18) mg/dL Creatinine (0.51-1.17) mg/dL Est Cr Clr Drug Dosing mL/min Estimated GFR (MDRD) mL/min Glucose (74-106) mg/dL Hemoglobin A1c (4.3-5.7) % Lactic Acid 1.1 (0.4-2.0) mmol/L Uric Acid (2.6-7.2) mg/dL Calcium (8.5-10.1) mg/dL Magnesium (1.8-2.4) mg/dL Total Bilirubin (0.2-1.0) mg/dL AST (15-37) U/L ALT (12-78) U/L Alkaline Phosphatase (46-116) IU/L Creatine Kinase (26-308) U/L Creatine Kinase Index (0.0-2.5) % CK-MB (CK-2) (0.00-3.60) ng/mL Troponin I (0.000-0.056) ng/mL NT-Pro-B Natriuret Pep (0-125) pg/mL Total Protein (6.4-8.2) g/dL Albumin (3.4-5.0) g/dL Triglycerides (30-150) mg/dL Cholesterol (100-200) mg/dL LDL Cholesterol, Calc (0-100) mg/dL HDL Cholesterol (40-60) mg/dL TSH, Ultra Sensitive (0.358-3.740) mIU/mL Specimen Type Urine Color Urine Appearance Urine pH (5.0-9.0) Ur Specific [place] (1.005-1.030) Urine Protein (NEGATIVE) mg/dL Urine Glucose (UA) (NEGATIVE) mg/dL Urine Ketones (NEGATIVE) mg/dL Urine Occult Blood (NEGATIVE) Urine Nitrite (NEGATIVE) Urine Bilirubin (NEGATIVE) Urine Urobilinogen (0.2-1.0) E.U./dL Ur Leukocyte Esterase (NEGATIVE) Urine RBC /HPF Urine WBC /HPF Ur Epithelial Cells /LPF Urine Bacteria (NONE TO FEW) /HPF Urine Mucus (NEGATIVE) /LPF SARS-CoV-2 RNA (JASON) Negative (NEGATIVE) 11/30/20 11/30/20 11/30/20 Range/Units 13:47 18:23 19:35 WBC (4.0-10.2) K/uL RBC (4.33-5.41) M/uL Hgb (13.1-16.8) g/dL Hct (39.0-49.0) % MCV (84.0-98.0) fL MCH (28.2-33.3) pg MCHC (31.7-36.0) g/dL RDW (11.2-14.1) % Plt Count (150-350) K/uL Neut % (Auto) (45.0-80.0) % Lymph % (Auto) (10.0-50.0) % [place] % (Auto) (2.0-14.0) % Eos % (Auto) (0.0-5.0) % Baso % (Auto) (0.0-2.0) % Neut # (Auto) (1.40-7.00) K/uL Lymph # (Auto) (0.50-3.50) K/uL [place] # (Auto) (0.00-1.00) K/uL Eos # (Auto) (0.00-0.50) K/uL Baso # (Auto) (0.00-0.20) K/uL D-Dimer, Quantitative (0-400) ng/mL Sodium (136-145) mmol/L Potassium (3.5-5.1) mmol/L Chloride (98-107) mmol/L Carbon Dioxide (21.0-32.0) mmol/L BUN (7-18) mg/dL Creatinine (0.51-1.17) mg/dL Est Cr Clr Drug Dosing mL/min Estimated GFR (MDRD) mL/min Glucose (74-106) mg/dL Hemoglobin A1c (4.3-5.7) % Lactic Acid (0.4-2.0) mmol/L Uric Acid (2.6-7.2) mg/dL Calcium (8.5-10.1) mg/dL Magnesium (1.8-2.4) mg/dL Total Bilirubin (0.2-1.0) mg/dL AST (15-37) U/L ALT (12-78) U/L Alkaline Phosphatase (46-116) IU/L Creatine Kinase 115 151 (26-308) U/L Creatine Kinase Index 0.9 0.7 (0.0-2.5) % CK-MB (CK-2) 1.00 1.10 (0.00-3.60) ng/mL Troponin I 0.007 0.004 (0.000-0.056) ng/mL NT-Pro-B Natriuret Pep (0-125) pg/mL Total Protein (6.4-8.2) g/dL Albumin (3.4-5.0) g/dL Triglycerides (30-150) mg/dL Cholesterol (100-200) mg/dL LDL Cholesterol, Calc (0-100) mg/dL HDL Cholesterol (40-60) mg/dL TSH, Ultra Sensitive (0.358-3.740) mIU/mL Specimen Type Urincc Urine Color Yellow Urine Appearance Clear Urine pH 5.0 (5.0-9.0) Ur Specific [place] 1.025 (1.005-1.030) Urine Protein Negative (NEGATIVE) mg/dL Urine Glucose (UA) Negative (NEGATIVE) mg/dL Urine Ketones Negative (NEGATIVE) mg/dL Urine Occult Blood Negative (NEGATIVE) Urine Nitrite Negative (NEGATIVE) Urine Bilirubin Negative (NEGATIVE) Urine Urobilinogen 0.2 (0.2-1.0) E.U./dL Ur Leukocyte Esterase Negative (NEGATIVE) Urine RBC 0-5 /HPF Urine WBC Not seen /HPF Ur Epithelial Cells Rare /LPF Urine Bacteria Rare (NONE TO FEW) /HPF Urine Mucus Rare H (NEGATIVE) /LPF SARS-CoV-2 RNA (JASON) (NEGATIVE) 12/01/20 12/01/20 12/01/20 Range/Units 07:24 07:24 07:24 WBC 9.2 (4.0-10.2) K/uL RBC 5.07 (4.33-5.41) M/uL Hgb 14.1 (13.1-16.8) g/dL Hct 44.5 (39.0-49.0) % MCV 87.8 (84.0-98.0) fL MCH 27.8 L (28.2-33.3) pg MCHC 31.7 (31.7-36.0) g/dL RDW 14.5 H (11.2-14.1) % Plt Count 291 (150-350) K/uL Neut % (Auto) 75.0 (45.0-80.0) % Lymph % (Auto) 14.4 (10.0-50.0) % [place] % (Auto) 8.2 (2.0-14.0) % Eos % (Auto) 2.0 (0.0-5.0) % Baso % (Auto) 0.4 (0.0-2.0) % Neut # (Auto) 6.87 (1.40-7.00) K/uL Lymph # (Auto) 1.32 (0.50-3.50) K/uL [place] # (Auto) 0.75 (0.00-1.00) K/uL Eos # (Auto) 0.18 (0.00-0.50) K/uL Baso # (Auto) 0.04 (0.00-0.20) K/uL D-Dimer, Quantitative (0-400) ng/mL Sodium 138 (136-145) mmol/L Potassium 4.2 (3.5-5.1) mmol/L Chloride 100 (98-107) mmol/L Carbon Dioxide 30.9 (21.0-32.0) mmol/L BUN 17 (7-18) mg/dL Creatinine 0.89 (0.51-1.17) mg/dL Est Cr Clr Drug Dosing 99.88 mL/min Estimated GFR (MDRD) > 60 mL/min Glucose 101 (74-106) mg/dL Hemoglobin A1c 5.6 (4.3-5.7) % Lactic Acid (0.4-2.0) mmol/L Uric Acid 6.5 (2.6-7.2) mg/dL Calcium 9.2 (8.5-10.1) mg/dL Magnesium 2.1 (1.8-2.4) mg/dL Total Bilirubin 0.8 (0.2-1.0) mg/dL AST 14 L (15-37) U/L ALT 21 (12-78) U/L Alkaline Phosphatase 77 (46-116) IU/L Creatine Kinase 159 (26-308) U/L Creatine Kinase Index 0.6 (0.0-2.5) % CK-MB (CK-2) 1.00 (0.00-3.60) ng/mL Troponin I 0.005 (0.000-0.056) ng/mL NT-Pro-B Natriuret Pep (0-125) pg/mL Total Protein 7.9 (6.4-8.2) g/dL Albumin 3.6 (3.4-5.0) g/dL Triglycerides 57 (30-150) mg/dL Cholesterol 156 (100-200) mg/dL LDL Cholesterol, Calc 100 (0-100) mg/dL HDL Cholesterol 45 (40-60) mg/dL TSH, Ultra Sensitive (0.358-3.740) mIU/mL Specimen Type Urine Color Urine Appearance Urine pH (5.0-9.0) Ur Specific [place] (1.005-1.030) Urine Protein (NEGATIVE) mg/dL Urine Glucose (UA) (NEGATIVE) mg/dL Urine Ketones (NEGATIVE) mg/dL Urine Occult Blood (NEGATIVE) Urine Nitrite (NEGATIVE) Urine Bilirubin (NEGATIVE) Urine Urobilinogen (0.2-1.0) E.U./dL Ur Leukocyte Esterase (NEGATIVE) Urine RBC /HPF Urine WBC /HPF Ur Epithelial Cells /LPF Urine Bacteria (NONE TO FEW) /HPF Urine Mucus (NEGATIVE) /LPF SARS-CoV-2 RNA (JSAON) (NEGATIVE) CARIDAD Results - Last 24 hrs: Microbiology 12/01/20 10:30 Stool Occult Blood (CARIDAD) - Final Stool / Feces NEGATIVE OCCULT BLOOD REFERENCE RANGE: NEGATIVE 11/30/20 08:50 Influenza Type A Antigen Screen - Final Nasal Aspirate, Left NEGATIVE INFLUENZA A VIRUS AG REFERENCE RANGE: NEGATIVE Influenza Type B Antigen Screen - Final NEGATIVE INFLUENZA B VIRUS AG REFERENCE RANGE: NEGATIVE Med Orders - Current: Current Medications Acetaminophen (Tylenol) 650 mg PO Q4H PRN PRN Reason: Pain Folic Acid (Folic Acid) 1 mg PO DAILY [facility] Last Admin: 12/01/20 08:45 Dose: 1 mg Documented by: Furosemide (Lasix) 20 mg PO DAILY [facility] Last Admin: 12/01/20 08:47 Dose: 20 mg Documented by: Hydrochlorothiazide (Hydrochlorothiazide) 12.5 mg PO DAILY [facility] Last Admin: 12/01/20 08:45 Dose: 12.5 mg Documented by: Levothyroxine Sodium (Levothyroxine) 25 mcg PO ACBREAKFAST [facility] Last Admin: 12/01/20 08:46 Dose: 25 mcg Documented by: Levothyroxine Sodium (Synthroid) 200 mcg PO ACBREAKFAST [facility] Last Admin: 12/01/20 08:44 Dose: 200 mcg Documented by: Lisinopril (Prinivil) 10 mg PO DAILY [facility] Last Admin: 12/01/20 08:46 Dose: 10 mg Documented by: Loratadine (Claritin) 10 mg PO DAILY PRN PRN Reason: Allergies Magnesium Oxide (Magnesium Oxide) 400 mg PO QPM [facility] Pantoprazole Sodium (Protonix Iv) 40 mg IVPUSH Q12H [facility] Last Admin: 12/01/20 08:44 Dose: 40 mg Documented by: Potassium Chloride (Klor-Con M20) 20 meq PO DAILY [facility] Last Admin: 12/01/20 08:46 Dose: 20 meq Documented by: Sodium Chloride (Saline Flush) 10 ml FLUSH ASDIRECTED PRN PRN Reason: Keep Vein Open Last Admin: 12/01/20 08:54 Dose: 10 ml Documented by: Sodium Chloride (Saline Flush) 10 ml FLUSH Q12HR PRN PRN Reason: Keep Vein Open Temazepam (Restoril) 15 mg PO BEDTIME PRN PRN Reason: Insomnia Discontinued Medications Al Hydroxide/Mg Hydroxide (Gi Cocktail) 30 ml PO ONETIME ONE Stop: 11/30/20 18:45 Last Admin: 11/30/20 18:54 Dose: 30 ml Documented by: Aspirin (Aspirin) 324 mg PO ONETIME ONE Stop: 11/30/20 08:15 Last Admin: 11/30/20 08:17 Dose: 324 mg Documented by: Magnesium Oxide (Magnesium Oxide) 400 mg PO BID [facility] Stop: 11/30/20 19:00 Last Admin: 11/30/20 12:00 Dose: Not Given Documented by: Magnesium Oxide (Magnesium Oxide) 400 mg PO BID@1800,2000 [facility] Stop: 11/30/20 20:01 Last Admin: 11/30/20 19:51 Dose: 400 mg Documented by: Ticagrelor (Brilinta) 180 mg PO ONETIME ONE Stop: 11/30/20 08:31 Last Admin: 11/30/20 09:42 Dose: 180 mg Documented by: - Exam Quality Assessment: Reports: DVT Prophylaxis. Denies: Supplemental Oxygen, Central Line/PICC, Urine Catheter, Skin Breakdown, Restraints General: Reports: Alert, Oriented, Cooperative, No Acute Distress HEENT: Reports: Pupils Equal, Pupils Reactive, EOMI, Mucous Membr. Moist/Vanderbilt, Other (Patient is wearing glasses). Denies: Scleral Icterus Neck: Reports: Supple, Trachea Midline, No JVD, No Thyromegaly, +2 Carotid Pulse wo Bruit. Denies: Lymphadenopathy Lungs: Reports: Clear to Auscultation, Normal Respiratory Effort. Denies: Rub Cardiovascular: Reports: Regular Rate, Regular Rhythm, No Murmurs. Denies: Gallops, Rubs GI/Abdominal Exam: Normal Bowel Sounds, Soft, Non-Tender, No Organomegaly, No Distention, No Abnormal Bruit, No Mass, Other (Obese). No: Guarding (Male) Exam: Deferred Rectal (Males) Exam: Deferred Back Exam: Reports: Normal Inspection, Full Range of Motion, Other (Mild kyphosis). Denies: CVA Tenderness (L), CVA Tenderness (R), Muscle Spasm Extremities: Normal Range of Motion, Non-Tender, Normal Capillary Refill, Pedal Edema (Mild lymphedema of the lower extremities bilaterally). No: Nelsy's Sign Skin: Reports: Warm, Dry, Intact. Denies: Ecchymosis Neurological: Reports: No New Focal Deficit, Other (Stable borderline left hemiparesis requiring cane use) Psy/Mental Status: Reports: Alert, Normal Affect, Normal Mood. Denies: Agitated, Hallucinations, Withdrawal Symptoms #1 Interpretation EKG Date: 12/01/20 Time: 07:12 Rhythm: NSR Rate (Beats/Min): 73 [place]: Normal (Left) P-Wave: Enlarged (Mild diffuse biphasic P waves with extreme poor R wave progression in the anterior leads) QRS: LBBB (0.14 seconds representing stable complete left bundle branch block) ST-T: Other (T wave inversion in leads II, III, and aVF) QT: Normal W[place]/PQ Interval: 0.15 seconds representing a borderline short W[place] interval with no delta waves noted Comparison: No Change (Last EKG on 11/30/2020 at 6:53 PM) EKG Interpretation Comments: 1. Possible inferior wall cardiac ischemia 2. Complete left bundle branch block 3. Left atrial enlargement 4. Short W[place] intervalborderline
[2020-12-01] MEDS ORDERED: Magnesium Oxide 400 MG Tab PO SCH (18:00)
== END 2020-12-01 13:45 ==
LOC: LL.ED 07:29 → LL.MS 11:07
PROVIDERS: ADMIT Family Medicine; ATTEND Family Medicine
DX: R06.00 Dyspnea, unspecified (principal); R07.9 Chest pain, unspecified; E78.00 Pure hypercholesterolemia, unspecified; I10 Essential (primary) hypertension; I42.9 Cardiomyopathy, unspecified; J44.9 Chronic obstructive pulmonary disease, unspecified; G89.29 Other chronic pain; I44.7 Left bundle-branch block, unspecified; E66.01 Morbid (severe) obesity due to excess calories; D64.9 Anemia, unspecified; I49.3 Ventricular premature depolarization; D72.825 Bandemia; E83.42 Hypomagnesemia; Z20.822 Contact with and (suspected) exposure to COVID-19; Z79.899 Other long term (current) drug therapy; Z98.890 Other specified postprocedural states; Z68.44 Body mass index [BMI] 60.0-69.9, adult
CPT/HCPCS: 36415; 71046; 80053; 80061; 81001; 82272; 82550; 82553; 83036; 83605; 83735; 83880; 84443; 84484; 84550; 85025; 85379; 87086; 87338; 87804; 93005; 96374; 96376; 99285-25; A9270-GY; C9113; G0378; U0002

== ENCOUNTER 2022-01-24 10:31 | Day surgery (SDC) | payer MEDICARE, MEDICAID ==
[~2022-01-24 10:31] MED LIST changes: -Lactated Ringers 1,000 ML IV SCH; +Midazolam 1 MG/ML 2 ML SDV ONE; +Propofol 200 MG/20 ML SDV ONE; -Sodium Chloride 0.9% 10 ML Syringe FLUSH PRN
[2022-01-24] MEDS ORDERED: Sodium Chloride 0.9% 10 ML Syringe FLUSH PRN (11:30)
[2022-01-24] MEDS ORDERED: Lactated Ringers 1,000 ML IV SCH (11:30)
== END 2022-01-24 13:40 | disposition home or self-care (01) ==
LOC: LL.SDS 10:31
PROVIDERS: ATTEND Surgery
DX: K57.30 Diverticulosis of large intestine without perforation or abscess without bleeding (principal); G47.30 Sleep apnea, unspecified; E03.9 Hypothyroidism, unspecified; E66.01 Morbid (severe) obesity due to excess calories; E53.8 Deficiency of other specified B group vitamins; R73.03 Prediabetes; I10 Essential (primary) hypertension; Z68.45 Body mass index [BMI] 70 or greater, adult; Z79.890 Hormone replacement therapy; Z86.010 Personal history of colon polyps; Z79.84 Long term (current) use of oral hypoglycemic drugs; Z79.899 Other long term (current) drug therapy; Z87.891 Personal history of nicotine dependence
CPT/HCPCS: 82947; J2250; J2704; J7120

== ENCOUNTER 2022-07-13 05:33 | Emergency (ER) | payer MEDICARE, MEDICAID ==
[2022-07-13 06:44] LABS: ANION GAP 5.4 meq/L (7-15)
[2022-07-13] MEDS ORDERED: Furosemide 40 MG Tab PO ONE (07:13)
== END 2022-07-13 07:50 | disposition home or self-care (01) ==
LOC: LL.ED 05:33 → SUPCPDRO 05:33 → LL.ED 07:50
DX: R06.02 Shortness of breath (principal); R60.0 Localized edema; E78.00 Pure hypercholesterolemia, unspecified; I11.9 Hypertensive heart disease without heart failure; M19.90 Unspecified osteoarthritis, unspecified site; E03.9 Hypothyroidism, unspecified; E66.01 Morbid (severe) obesity due to excess calories; Z79.899 Other long term (current) drug therapy; Z79.84 Long term (current) use of oral hypoglycemic drugs; Z87.891 Personal history of nicotine dependence; Z68.44 Body mass index [BMI] 60.0-69.9, adult
CPT/HCPCS: 36415; 80053; 83735; 83880; 84484; 85025; 93005; 99285; A9270

== ENCOUNTER 2022-10-02 13:46 | Emergency (ER) | payer MEDICARE ==
[2022-10-02] MEDS ORDERED: Sodium Chloride 0.9% 10 ML Syringe FLUSH PRN (14:17)
[2022-10-02] MEDS: Sodium Chloride 0.9% 1,000 ML IV ONE (14:35)
[2022-10-02 15:08] LABS: ANION GAP 9.5 meq/L (7-15)
== END 2022-10-02 15:45 | disposition home or self-care (01) ==
LOC: LL.ED 13:46
DX: K29.70 Gastritis, unspecified, without bleeding (principal); K29.00 Acute gastritis without bleeding; E78.00 Pure hypercholesterolemia, unspecified; I10 Essential (primary) hypertension; E87.6 Hypokalemia; E66.9 Obesity, unspecified; Z79.899 Other long term (current) drug therapy
CPT/HCPCS: 36415; 80053; 85025; 96360; 99284; J7030

== ENCOUNTER 2023-02-17 12:18 | Emergency (ER) | payer MEDICARE, OTHER ==
[2023-02-17] MEDS ORDERED: Sodium Chloride 0.9% 10 ML Syringe FLUSH PRN (12:25)
[2023-02-17] MEDS ORDERED: Loperamide 2 MG Tab PO ONE ×2 (12:27→18:15)
[2023-02-17] MEDS ORDERED: Ondansetron 4 MG/2 ML SDV IVPUSH ONE ×2 (12:27→18:15)
[2023-02-17 13:09] LABS: ANION GAP 8.7 meq/L (7-15); CHLORIDE,CL 101 mmol/L (98-107); SODIUM,NA 136 mmol/L (136-145)
[2023-02-17 13:18] LABS: ESTIMATED GFR 57 mL/min (>=60)
[2023-02-17 13:25] LABS: CORONAVIRUS COVID-19 NAA NEGATIVE (NEGATIVE); RESPIRATORY SYNCYTIAL VIR NAA NEGATIVE (NEGATIVE)
[2023-02-17] MEDS ORDERED: Magnesium Sulfate/Water 2 GM in Premix Bag 1 BAG IV ONE (14:05)
[2023-02-17] MEDS ORDERED: Sodium Chloride 0.9% 1,000 ML IV ONE ×2 (14:06→16:24)
== END 2023-02-17 18:05 | disposition home or self-care (01) ==
LOC: LL.ED 12:18
DX: E86.0 Dehydration (principal); K52.9 Noninfective gastroenteritis and colitis, unspecified; I10 Essential (primary) hypertension; E66.9 Obesity, unspecified; Z20.822 Contact with and (suspected) exposure to COVID-19; I25.2 Old myocardial infarction; I25.10 Atherosclerotic heart disease of native coronary artery without angina pectoris; Z79.84 Long term (current) use of oral hypoglycemic drugs
CPT/HCPCS: 0241U; 36415; 74019; 80053; 81001; 83605; 83735; 85025; 87086; 96361; 96365; 96366; 96375; 99284; 99284-25; A9270-GY; J2405; J3475; J3490; J7030

== ENCOUNTER 2024-02-11 05:35 | Emergency (ER) | payer MEDICARE, MEDICAID | END 2024-02-11 05:50 | disposition left against medical advice (07) | LOC: LL.ED 05:35 | DX: Z53.21 Procedure and treatment not carried out due to patient leaving prior to being seen by health care provider (principal) | CPT/HCPCS: 82947 ==

== ENCOUNTER 2024-05-02 06:38 | Emergency (ER) | payer MEDICAID, MEDICARE ==
[2024-05-02 07:34] LABS: BASOPHILS ABSOLUTE AUTO 0.06 K/uL (0.00-0.20); BASOPHILS PERCENT AUTO 0.9 % (0.0-2.0); EOSINOPHILS ABSOLUTE AUTO 0.27 K/uL (0.00-0.50); EOSINOPHILS PERCENT AUTO 4.1 % (0.0-5.0); HEMATOCRIT 40.6 % (39.0-49.0); HEMOGLOBIN 12.7 g/dL (13.1-16.8); LYMPHOCYTES ABSOLUTE AUTO 1.54 K/uL (0.50-3.50); LYMPHOCYTES PERCENT AUTO 23.5 % (10.0-50.0); MEAN CORPUSCULAR HEMOGLOBIN 28.2 pg (28.2-33.3); MEAN CORPUSCULAR HGB CONC 31.3 g/dL (31.7-36.0); MONOCYTES ABSOLUTE AUTO 0.67 K/uL (0.00-1.00); MONOCYTES PERCENT AUTO 10.2 % (2.0-14.0); NEUTROPHILS ABSOLUTE AUTO 4.02 K/uL (1.40-7.00); NEUTROPHILS PERCENT AUTO 61.3 % (45.0-80.0); PLATELET COUNT,PLT 259 K/uL (150-350); RED BLOOD CELL COUNT 4.51 M/uL (4.33-5.41); RED CELL DISTRIBUTION WIDTH 13.7 % (11.2-14.1); WHITE BLOOD CELL COUNT,WBC 6.6 K/uL (4.0-10.2)
[2024-05-02 08:05] LABS: BLOOD UREA NITROGEN,BUN 13 mg/dL (7-18); CALCIUM 8.8 mg/dL (8.5-10.1); CARBON DIOXIDE,CO2 32.9 mmol/L (21.0-32.0); CHLORIDE,CL 102 mmol/L (98-107); GLUCOSE RANDOM 110 mg/dL (70-99); POTASSIUM,K 4.4 mmol/L (3.5-5.1); SODIUM,NA 141 mmol/L (136-145)
[2024-05-02 08:06] LABS: ANION GAP 10.5 meq/L (7-15); ESTIMATED GFR 77 mL/min (>=60)
== END 2024-05-02 08:20 | disposition home or self-care (01) ==
LOC: LL.ED 06:38
DX: R61 Generalized hyperhidrosis (principal); I10 Essential (primary) hypertension; E11.9 Type 2 diabetes mellitus without complications; Z79.899 Other long term (current) drug therapy; Z79.890 Hormone replacement therapy; Z79.84 Long term (current) use of oral hypoglycemic drugs
CPT/HCPCS: 36415; 71046; 80048; 82947; 84484; 85025; 93005; 99284

== ENCOUNTER 2024-05-09 04:42 | Emergency (ER) | payer MEDICARE | END 2024-05-09 05:08 | disposition home or self-care (01) | LOC: LL.ED 04:42 | DX: R05.9 Cough, unspecified (principal); I10 Essential (primary) hypertension; E11.40 Type 2 diabetes mellitus with diabetic neuropathy, unspecified; Z79.84 Long term (current) use of oral hypoglycemic drugs; Z79.899 Other long term (current) drug therapy | CPT/HCPCS: 99283; 99284 ==